=== PATIENT | male | born 1945 | race Caucasian/White ===

== ENCOUNTER → 2020-09-20 | Outpatient (CLI) | payer MEDICARE ==
[2005-09-17 09:35] VITALS: TEMP 97.4
[~2020-09-20] MED LIST: ASPIRIN 81M81 MG/TA2 PO; COUMADIN 5MG5 MG/TAB PO; LOVENOX 300MG SQ; PERCR 7.5 PO; ZOCOR 80MG80 MG PO
== END ==
LOC: COL.RAD 07:42
DX: I71.4 Abdominal aortic aneurysm, without rupture (principal)

== ENCOUNTER 2022-11-30 12:15 | Inpatient (IN) | payer MEDICARE ==
[~2022-11-30] VITALS: Wt 91.7 kg
[2022-11-30] VITALS (8 sets, daily range): BP systolic 124–233; BP diastolic 74–90; PULSE 44–72; TEMP 97.7–98.1
[2022-11-30 12:54] LABS: BASO % 0.2 % (0.0-2.0); EOS % 0.3 % (0.0-4.0); GRAN # 8.2 K/mm3 (1.4-6.5); GRAN % 85.4 % (42.2-75.2); HEMATOCRIT 48.4 % (42.0-52.0); HEMOGLOBIN 16.3 g/dl (13.5-18.0); LYMPH # 0.9 K/mm3 (1.2-3.4); LYMPH % 9.8 % (20.0-51.0); MEAN CELL VOLUME 86 fl (80.0-100.0); MEAN CORPUSCULAR HEMOGLOBIN 29 pg (27-31); MEAN CORPUSCULAR HGB CONC 34 g/dl (33.0-37.0); MEAN PLATELET VOLUME 10.9 fl (7.4-10.4); MONO # 0.4 K/mm3 (0.1-0.6); PLATELET COUNT 204 K/mm3 (130-400); RED BLOOD COUNT 5.63 M/mm3 (4.20-5.60); REDCELL DISTRIBUTION WIDTH-CV 14.4 % (11.5-14.5)
[2022-11-30 13:03] LABS: INR 1.4 (0.8-3.0); PROTHROMBIN TIME 16.2 SECONDS (9.7-12.8)
[2022-11-30 13:05] LABS: ALBUMIN 3.5 gm/dL (3.4-4.8); BILIRUBIN,TOTAL 0.6 mg/dL (0.2-1.2); CALCIUM 9.1 mg/dL (8.4-10.2); CREATININE, serum 1.01 mg/dL (0.72-1.25); POTASSIUM 4.3 mmol/L (3.5-4.5)
[2022-11-30 13:24] LABS: TROPONIN-I 0.016 ng/mL (0.00-0.033); TSH w REFLEX 1.42 uIU/mL (0.350-4.940)
[2022-11-30] MEDS ORDERED: COUMADIN4 MG PO (13:42)
--- NOTE | 2022-11-30 15:33 | NUR ---
SEE MERGE FOR ALL MEDICATIONS, VITAL SIGNS AND INTERVENTIONS.
--- NOTE | 2022-11-30 16:35 | NUR ---
PATIENT ADMITED INTO ROOM 358 POST-OP PACEMAKER PLACEMENT. SLING TO LUE. LEFT CHEST INCISION DSG IS CD&I WITH GAUZE. REPORTS MILD DISCOMFORT AT PACER SITE. NO C/O N/V. AHA DIET. PATIENT WAS NOT BROUGHT TO FLOOR WITH TELE ON, PCT SENT TO GO GET TELE BOX. HEAD TO TOE ASSESSMENT COMPLETE. VOIDED WITH URINAL. FAMILY AT BEDSIDE. ORIENTED TO ROOM. CALL LIGHT IN REACH. PATIENT LOOKING AT MENU.
[2022-11-30] MEDS ORDERED: LIPITOR 80MG80 MG PO (16:48)
[2022-11-30] MEDS ORDERED: ALEVE 220MG220 MG PO (16:54)
--- NOTE | 2022-11-30 19:00 | NUR ---
PATIENT REPORTS HE SORE/ACHE FROM FALL AND DURING SHIFT REPORT ASKED FOR PAIN MEDS. NO PAIN MEDS ORDERED, CALL PROVIDER, AWAITING ORDERS. JESSICA MTZ TAKING OVER.
[2022-11-30 21:10] LABS: COLLECTION METHOD CLEAN CATCH
[2022-11-30 21:30] LABS: MUCOUS Present (NOT PRESENT); SQUAMOUS EPITHELIAL None Seen /hpf (0-10); URINE BACTERIA None Seen /hpf (NONE SEEN); URINE RBC >50 /hpf (0-2)
[2022-11-30 21:31] LABS: URINE APPEARANCE Hazy (CLEAR/HAZY); URINE COLOR Yellow (YELLOW); URINE GLUCOSE Negative (NEGATIVE); URINE KETONE Negative (NEGATIVE); URINE NITRATE Negative (NEGATIVE); URINE PROTEIN(semi-quant) Negative (NEGATIVE); URINE UROBILINOGEN 0.2 (NEGATIVE)
[2022-11-30 21:32] LABS: URINE BLOOD 3+ (NEGATIVE)
--- NOTE | 2022-11-30 21:46 | NUR ---
Patient assessed around 1949. Complained of level 7 pain to neck, given PRN [place]. Continued to have pain and discomfort, and given 2nd [place] per orders. Peripheral INT to left AC. Has sling to left arm. Dressing to pacemaker site CDI. Voices no questions, needs, or concerns at this time. In bed with call light within reach. Bed alarm on.
[2022-12-01] VITALS (7 sets, daily range): BP systolic 105–142; BP diastolic 44–78; PULSE 59–99; TEMP 97.5–98.3
--- NOTE | 2022-12-01 00:31 | NUR ---
Patient had episode of emesis. Called RENEE Deleon, and new order received for PRN Zofran, and given per orders. Voices no further complaints at this time. In bed with call light within reach. Bed alarm on.
--- NOTE | 2022-12-01 06:34 | NUR ---
No further complaints of nausea or pain this shift. In bed with call light within reach. In bed with call light within reach. Bed alarm on.
[2022-12-01 06:38] LABS: BASO % 0.2 % (0.0-2.0); EOS % 0.7 % (0.0-4.0); GRAN # 4.8 K/mm3 (1.4-6.5); HEMATOCRIT 42.1 % (42.0-52.0); LYMPH # 0.9 K/mm3 (1.2-3.4); LYMPH % 14.5 % (20.0-51.0); MEAN CELL VOLUME 86 fl (80.0-100.0); MEAN CORPUSCULAR HEMOGLOBIN 29 pg (27-31); MEAN CORPUSCULAR HGB CONC 33 g/dl (33.0-37.0); MEAN PLATELET VOLUME 11.4 fl (7.4-10.4); MONO # 0.4 K/mm3 (0.1-0.6); MONO % 6.3 % (1.7-9.3); PLATELET COUNT 188 K/mm3 (130-400); RED BLOOD COUNT 4.91 M/mm3 (4.20-5.60); REDCELL DISTRIBUTION WIDTH-CV 14.6 % (11.5-14.5)
[2022-12-01 06:40] LABS: INR 1.5 (0.8-3.0); PROTHROMBIN TIME 16.9 SECONDS (9.7-12.8)
[2022-12-01 06:55] LABS: CALCIUM 8.6 mg/dL (8.4-10.2); CREATININE, serum 1.13 mg/dL (0.72-1.25); POTASSIUM 4.1 mmol/L (3.5-4.5)
--- NOTE | 2022-12-01 08:12 | NUR ---
Pt is awake and laying in bed. Morning medications administered per eMAR. Shift assessment completed. VSS. Telemetry remains on; paced. Dressing over L upper chest is CDI. 1/2NS infusing at 125mL/hr in L AC patent, no edema or redness. Pt c/o neck pain, PRN norco administered. Device download completed by JESSICA Gipson. No further request at this time. Call light within reach.
[2022-12-01] MEDS ORDERED: COUMADIN 5MG5 MG/TAB PO (11:12)
--- NOTE | 2022-12-01 15:41 | NUR ---
[employer] met with patient and his , Robina (ph#[phone]) to discuss discharge planning. Patient lives in [place], [place] and sees Dr. Lam for primary care. Patient obtains medications from [facility] in [place] with no difficulties. Patient does not use any DME and is independent with ADLS. Patient advised his is primary DPOA-HC, then his two children. Patient plans to return home at time of discharge. PT/OT worked with patient and recommend home. Discharge Plan: Home
--- NOTE | 2022-12-01 15:58 | NUR ---
Initial visit; Patient thanked Senior [employer] for looking in on him and offering God's blessings.
[2022-12-02 03:10] VITALS: BP 130/66; PULSE 63; TEMP 98.3
--- NOTE | 2022-12-02 04:35 | NUR ---
PATIENT IS AOX4 AND PLEASANT TO SPEAK WITH. WILL DISCHARGE HOME TODAY WITH SPOUSE. PACED ON TELEMETRY. PAIN TO PACER SITE, GIVEN NORCO 1X. ON CEPHALEXIN PROPHYLACTIC. RA. CALL LIGHT IN REACH. BED IN LOWEST POSITION.
[2022-12-02 06:24] LABS: BASO % 0.4 % (0.0-2.0); EOS # 0.2 K/mm3 (0.0-0.7); EOS % 2.9 % (0.0-4.0); GRAN # 3.8 K/mm3 (1.4-6.5); HEMATOCRIT 42.2 % (42.0-52.0); HEMOGLOBIN 13.8 g/dl (13.5-18.0); LYMPH # 1.1 K/mm3 (1.2-3.4); LYMPH % 19.3 % (20.0-51.0); MEAN CELL VOLUME 87 fl (80.0-100.0); MEAN CORPUSCULAR HEMOGLOBIN 28 pg (27-31); MEAN CORPUSCULAR HGB CONC 33 g/dl (33.0-37.0); MEAN PLATELET VOLUME 10.9 fl (7.4-10.4); MONO # 0.5 K/mm3 (0.1-0.6); MONO % 8.2 % (1.7-9.3); PLATELET COUNT 173 K/mm3 (130-400); RED BLOOD COUNT 4.88 M/mm3 (4.20-5.60); REDCELL DISTRIBUTION WIDTH-CV 14.6 % (11.5-14.5)
[2022-12-02 06:36] LABS: CALCIUM 8.6 mg/dL (8.4-10.2); POTASSIUM 4.1 mmol/L (3.5-4.5)
[2022-12-02 07:29] VITALS: BP 130/86; PULSE 65; TEMP 97.6
[2022-12-02 08:07] LABS: INR 1.3 (0.8-3.0); PROTHROMBIN TIME 15.3 SECONDS (9.7-12.8)
[2022-12-02] MEDS ORDERED: COUMADIN 5MG5 MG/TAB PO (09:47)
[2022-12-02] MEDS ORDERED: NORVASC 10MG10 MG PO (09:47)
[2022-12-02] MEDS ORDERED: CEPHALEXIN500 M1 PO (09:48)
--- NOTE | 2022-12-02 11:47 | NUR ---
PATIENT DISCHARGED HOME WITH . IT DISASTER RECOVERY MANAGER ESCORTED PATIENT OUT. ACKNOWLEDGED UNDERSTANDING OF MEDICATIONS AND FOLLOW UP APPOINTMENTS.
== END 2022-12-02 11:48 | disposition home or self-care (01) | DRG 244 ==
LOC: COL.ER 12:15 → MEDICAL 17:21
PROVIDERS: Emergency Medicine; Physician Assistant; ADMIT Student in an Organized Health Care Education/Training Program
PROC: 0JH606Z Insertion of Pacemaker, Dual Chamber into Chest Subcutaneous Tissue and Fascia, Open Approach (ICD-10-PCS; principal; 2022-11-30)
PROC: 02H63JZ Insertion of Pacemaker Lead into Right Atrium, Percutaneous Approach (ICD-10-PCS; 2022-11-30)
PROC: 02HK3JZ Insertion of Pacemaker Lead into Right Ventricle, Percutaneous Approach (ICD-10-PCS; 2022-11-30)
DX: I44.1 Atrioventricular block, second degree (principal); W10.8XXA Fall (on) (from) other stairs and steps, initial encounter; I16.0 Hypertensive urgency; I10 Essential (primary) hypertension; E78.5 Hyperlipidemia, unspecified; K57.30 Diverticulosis of large intestine without perforation or abscess without bleeding; I35.1 Nonrheumatic aortic (valve) insufficiency; I71.40 Abdominal aortic aneurysm, without rupture, unspecified; Z86.711 Personal history of pulmonary embolism; Y93.89 Activity, other specified; Y92.89 Other specified places as the place of occurrence of the external cause; Z79.01 Long term (current) use of anticoagulants
CPT/HCPCS: C1769; C1785; C1894; C1898; J0690; J1940; J2250; J2405; J3010; J7030; J7050; Q9967